=== PATIENT | female | born 1965 | race African-American/Black ===

== ENCOUNTER 2016-10-31 10:00 | Inpatient (IN) | payer OTHER ==
[~2016-10-31] VITALS: Ht 154.9 cm; Wt 63.5 kg
--- NOTE | ~2016-10-31 | HP ---
Unit #: [id number] #: [id number] Patient: YARELIS JEAN [id number] [place] [address] [id number] MR#: [id number] NAME: YARELIS JEAN ROOM: [facility] Age: 51 Sex: F Admission Date: 10/31/2016 : 1965 Attending Physician: Nikhil Cueva M.D. Admitting Physician: Nikhil Cueva M.D. Primary Care Physician: Generic Doctor Not In System HISTORY AND PHYSICAL HISTORY AND PHYSICAL COMPLETED 10/31/2016. 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 She also has been using "spice." PAST MEDICAL HISTORY None. PAST SURGICAL HISTORY section x3. SOCIAL HISTORY She smokes one pack of cigarettes daily, reports binge alcohol use and daily use of crack cocaine, and recently she has been using "spice." FAMILY HISTORY Noncontributory. REVIEW OF SYSTEMS CONSTITUTIONAL: No fever or chills. HEENT: Denies any sore throat, ear pain or runny nose. CARDIOVASCULAR: Denies chest pain, irregular heart rhythm or palpitations. CHEST: Denies shortness of breath or cough. No hemoptysis. GASTROINTESTINAL: Denies nausea, vomiting, diarrhea or chronic constipation. ENDOCRINE: Denies history of increased thirst or urination. No recent significant weight loss or gain. GENITOURINARY: Denies dysuria, frequency, or hematuria. SKIN: Denies any rashes. HEMATOLOGIC: Denies history of increased bleeding or bruising. MUSCULOSKELETAL: Denies any hot, swollen joints. No generalized muscle pain. NEUROLOGIC: Denies problems with vision or speech. No frequent, severe headaches. No numbness, tingling or weakness in any extremities. Denies loss of bladder or bowel control. CURRENT MEDICATIONS None. ALLERGIES Unit #: [id number] #: [id number] Patient: YARELIS JEAN Penicillin. PHYSICAL EXAMINATION GENERAL: Alert, oriented, and no acute distress. VITAL SIGNS: blood pressure 133/85, heart rate 83, respirations 16. HEIGHT: 5 feet 1 inch. WEIGHT: 140 pounds. SKIN: Warm and dry without rash or lesion. HEENT: Normocephalic. TMs not viewed. Oral and nasal passages clear. Conjunctivae clear. PERRLA. EOMs intact. NECK: Supple without lymphadenopathy or thyromegaly. HEART: Regular rate and rhythm without murmur. LUNGS: Clear. ABDOMEN: Soft, nontender. : Not done. EXTREMITIES: No evidence of cyanosis, clubbing or edema. Moves all without focal deficit. NEUROLOGICAL: Grossly within normal limits. Cranial Nerves: II: Visual gilbert are intact. III, IV AND : Extraocular movements are intact. Pupils are equal, round and reactive to light. V: Facial sensation is grossly normal. VII: Facial movements and expression are normal. VIII: Auditory acuity grossly intact. IX, X: Uvula is midline. Phonation is normal. XI: Patient shrugs shoulders and turns head normally. XII: Tongue protrudes in the midline. Sensory and Motor Function: Sensory and motor sensation is grossly normal. Motor: moves all extremities well. Coordination: Gait is normal. Deep Tendon Reflexes: Intact. IMPRESSION Psychiatric admission. RECOMMENDATIONS Psychiatric, per psychiatrist. MEDICAL No contraindications to participating in facility's activities. MEDICAL PROGNOSIS Good. MEDICAL CONDITION Stable. Dictated by... Cricket Carr TD: 11/01/2016 06:21 JOB #: [id number] Unit #: [id number] #: [id number] Patient: MIRANDA,YARELIS HISTORY AND PHYSICAL Page 1 of 1 X ELDA BARNES APRN X HISTORY AND PHYSICAL
[2016-11-01 11:13] LABS: AMPHETAMINE NEG (NEG); BARBITURATES NEG (NEG); BENZODIAZEPINES NEG (NEG); COCAINE NEG (NEG); MARIJUANA POS (NEG); OPIATES NEG (NEG); TRICYCLIC ANTIDEPRESSANTS NEG (NEG); U METHADONE NEG (NEG)
== END 2016-11-01 11:50 | DRG 885 ==
LOC: P1E 13:04
PROVIDERS: Psychiatry & Neurology Psychiatry
DX: F20.0 Paranoid schizophrenia (principal); F14.20 Cocaine dependence, uncomplicated; R45.851 Suicidal ideations; F10.20 Alcohol dependence, uncomplicated; Z91.14 Patient's other noncompliance with medication regimen; F17.210 Nicotine dependence, cigarettes, uncomplicated; Z56.0 Unemployment, unspecified
CPT/HCPCS: 80307